=== PATIENT | male | born 1960 | race Caucasian/White ===

== ENCOUNTER 2020-08-01 07:18 | Outpatient (CLI) | payer BC, OTHER ==
--- NOTE | 2020-08-01 08:47 | MRI ---
MRI BRAIN WITH AND WITHOUT IV CONTRAST: HISTORY: Vertigo, dizziness and lightheadedness COMPARISON: None CORRELATION: None FINDINGS: No restricted diffusion is seen. No evidence of infarct, hemorrhage, mass, midline shift or abnormal extra-axial fluid collections is noted. No abnormal postcontrast enhancement is seen. The ventricular size is appropriate and the basilar cisterns are patent. There is mucosal disease in the paranasal sinuses. IMPRESSION: 1. Normal MRI of the brain 2. Paranasal sinus disease
[2020-08-01] MEDS ORDERED: Magnevist 469MG/ML 20 ML VIAL ONE (10:46)
== END 2020-08-01 07:19 | disposition home or self-care (01) ==
LOC: BICMRI 07:18
PROVIDERS: ATTEND Psychiatry & Neurology Neurology
DX: R42 Dizziness and giddiness (principal); J32.9 Chronic sinusitis, unspecified
CPT/HCPCS: 70553

== ENCOUNTER 2021-02-01 08:15 | Outpatient (CLI) | payer BC | END 2021-02-01 08:16 | disposition home or self-care (01) | LOC: TBSIIMAG 08:15 | PROVIDERS: ATTEND Neurological Surgery | DX: M54.5 Low back pain (principal); M47.816 Spondylosis without myelopathy or radiculopathy, lumbar region | CPT/HCPCS: 72110 ==

== ENCOUNTER 2022-05-10 10:31 | Outpatient (CLI) | payer OTHER | END 2022-05-10 10:32 | disposition home or self-care (01) | LOC: BICCT 10:31 | PROVIDERS: ATTEND Otolaryngology Otology & Neurotology | DX: R42 Dizziness and giddiness (principal) | CPT/HCPCS: 70480 ==